=== PATIENT | female | born 1955 | race Caucasian/White ===

== ENCOUNTER → 2016-05-31 | Outpatient (CLI) | payer BC ==
[~2016-05-31] MED LIST: LISI-646 PO; METO25TA5 PO
[2016-05-31 14:26] LABS: BUN/Creatinine Ratio 15.8; Calcium 8.9 mg/dL (8.5-10.1); Potassium 3.9 mmol/L (3.5-5.1)
== END | disposition home or self-care (01) ==
LOC: LAB 13:49
PROVIDERS: ATTEND Internal Medicine
DX: I10 Essential (primary) hypertension (principal)
CPT/HCPCS: 36415; 80048

== ENCOUNTER → 2016-07-28 | Outpatient (CLI) | payer BC ==
[2016-07-28 11:40] LABS: Potassium 3.9 mmol/L (3.5-5.1)
[2016-07-28 11:41] LABS: Albumin 3.9 g/dL (3.4-5.0); BUN/Creatinine Ratio 21.3; Bilirubin, Total 0.3 mg/dL (0.2-1.0); Calcium 9.1 mg/dL (8.5-10.1)
== END | disposition home or self-care (01) ==
LOC: LAB 11:19
PROVIDERS: ATTEND Internal Medicine
DX: R73.09 Other abnormal glucose (principal); I10 Essential (primary) hypertension
CPT/HCPCS: 36415; 80053; 83036

== ENCOUNTER → 2016-10-15 | Outpatient (CLI) | payer BC ==
[2016-10-15 09:38] LABS: Albumin 3.5 g/dL (3.4-5.0); Bilirubin, Total 0.5 mg/dL (0.2-1.0); Calcium 8.6 mg/dL (8.5-10.1); Total Protein 6.3 g/dL (6.4-8.2)
== END | disposition home or self-care (01) ==
LOC: LAB 09:02
PROVIDERS: ATTEND Internal Medicine
DX: I10 Essential (primary) hypertension (principal)
CPT/HCPCS: 36415; 80053

== ENCOUNTER → 2017-03-11 | Outpatient (CLI) | payer BC ==
[2017-03-11 08:30] LABS: Cholesterol 236 mg/dL (< 200); HDL Cholesterol 54 mg/dL (40-59); LDL Cholesterol 163 mg/dL (< 100); Triglycerides 155 mg/dL (< 150)
== END | disposition home or self-care (01) ==
LOC: LAB 07:24
PROVIDERS: ATTEND Internal Medicine
DX: I10 Essential (primary) hypertension (principal); Z79.899 Other long term (current) drug therapy
CPT/HCPCS: 36415; 80061; 83036

== ENCOUNTER → 2018-05-29 | Outpatient (CLI) | payer BC ==
[2018-05-29 10:10] LABS: Basophils # (auto) 0.1 uL; Basophils % (auto) 1.2 % (0.0-2.0); Eosinophils # (auto) 0.2 uL; Eosinophils % (auto) 2.5 % (0.0-7.0); Hematocrit 45.4 % (36.0-46.0); Hemoglobin 15.3 g/dL (12.2-16.2); Lymphocytes # (auto) 1.9 uL; Lymphocytes % (auto) 27.3 % (10.0-50.0); Mean Corpuscular Hemoglobin 30.9 pg (28.0-32.0); Mean Corpuscular Hgb Conc. 33.7 g/dL (32.0-36.0); Mean Corpuscular Volume 91.9 fL (80.0-100.0); Monocytes # (auto) 0.5 uL; Monocytes % (auto) 7.2 % (0.0-12.0); Neutrophils # (auto) 4.4 uL; Neutrophils % (auto) 61.8 % (37.0-80.0); Platelet Count (auto) 222 10^3/uL (140-450); Red Blood Cells 4.94 10^6/uL (4.0-5.20); Red Cell Distribution Width 13.1 % (11.8-14.3); White Blood Cell 7.1 10^3/uL (4.4-10.8)
[2018-05-29 10:59] LABS: Potassium 4.4 mmol/L (3.5-5.1)
[2018-05-29 11:08] LABS: Albumin 3.6 g/dL (3.4-5.0); BUN/Creatinine Ratio 17.7; Bilirubin, Total 0.5 mg/dL (0.2-1.0); Calcium 8.9 mg/dL (8.5-10.1)
== END | disposition home or self-care (01) ==
LOC: LAB 09:33
PROVIDERS: ATTEND Internal Medicine
DX: E78.5 Hyperlipidemia, unspecified (principal)
CPT/HCPCS: 36415; 80053; 80061; 84443; 85025

== ENCOUNTER → 2018-06-01 | Outpatient (CLI) | payer BC | END | disposition home or self-care (01) | LOC: LAB 12:06 | PROVIDERS: ATTEND Internal Medicine | DX: E78.5 Hyperlipidemia, unspecified (principal) | CPT/HCPCS: 82270 ==

== ENCOUNTER → 2019-07-19 | Outpatient (CLI) | payer BC ==
[2019-07-19 09:37] LABS: Basophils # (auto) 0 10 ^3/uL (0-0.2); Basophils % (auto) 0.8 % (0.0-2.0); Eosinophils # (auto) 0.2 10 ^3/uL (0-0.8); Eosinophils % (auto) 3.6 % (0.0-7.0); Hematocrit 38.9 % (36.0-46.0); Hemoglobin 13.3 g/dL (12.2-16.2); Lymphocytes # (auto) 1.9 10 ^3/uL (0.4-5.4); Lymphocytes % (auto) 33.8 % (10.0-50.0); Mean Corpuscular Hemoglobin 31.7 pg (28.0-32.0); Mean Corpuscular Hgb Conc. 34.1 g/dL (32.0-36.0); Mean Corpuscular Volume 92.8 fL (80.0-100.0); Monocytes # (auto) 0.6 10 ^3/uL (0-1.3); Monocytes % (auto) 10.1 % (0.0-12.0); Neutrophils % (auto) 51.7 % (37.0-80.0); Platelet Count (auto) 176 10^3/uL (140-450); Red Blood Cells 4.19 10^6/uL (4.0-5.20); Red Cell Distribution Width 13.3 % (11.8-14.3); White Blood Cell 5.8 10^3/uL (4.4-10.8)
[2019-07-19 10:23] LABS: Potassium 3.9 mmol/L (3.5-5.1)
[2019-07-19 10:30] LABS: Albumin 3.2 g/dL (3.4-5.0); BUN/Creatinine Ratio 31.6; Bilirubin, Total 0.4 mg/dL (0.2-1.0); Calcium 8.9 mg/dL (8.5-10.1); Total Protein 6.3 g/dL (6.4-8.2)
== END | disposition home or self-care (01) ==
LOC: LAB 09:01
PROVIDERS: ATTEND Internal Medicine
DX: E78.5 Hyperlipidemia, unspecified (principal); E55.9 Vitamin D deficiency, unspecified; I10 Essential (primary) hypertension
CPT/HCPCS: 36415; 80053; 80061; 82306; 84443; 85025

== ENCOUNTER → 2019-07-26 | Outpatient (CLI) | payer BC | END | disposition home or self-care (01) | LOC: LAB 08:34 | PROVIDERS: ATTEND Internal Medicine | DX: E78.5 Hyperlipidemia, unspecified (principal); I10 Essential (primary) hypertension | CPT/HCPCS: 82270 ==

== ENCOUNTER → 2020-03-20 | Outpatient (CLI) | payer BC ==
[2020-03-20 10:55] LABS: Albumin 3.5 g/dL (3.4-5.0); Calcium 9.7 mg/dL (8.5-10.1); Potassium 4.1 mmol/L (3.5-5.1)
[2020-03-20 10:59] LABS: Bilirubin, Total 0.4 mg/dL (0.2-1.0); Total Protein 6.6 g/dL (6.4-8.2)
== END | disposition home or self-care (01) ==
LOC: LAB 09:49
PROVIDERS: ATTEND Internal Medicine
DX: I10 Essential (primary) hypertension (principal); E78.5 Hyperlipidemia, unspecified; R73.09 Other abnormal glucose
CPT/HCPCS: 36415; 80053; 83036

== ENCOUNTER → 2020-03-26 | Outpatient (CLI) | payer OTHER | END | disposition home or self-care (01) | LOC: LAB 13:29 | PROVIDERS: ATTEND Internal Medicine | DX: U07.1 COVID-19 (principal) | CPT/HCPCS: 36415; 87426; C9803; U0003 ==

== ENCOUNTER → 2020-10-16 | Outpatient (CLI) | payer BC ==
[~2020-10-16] MED LIST changes: -LISI-646 PO; +LISI20TA28 PO
[2020-10-16 08:39] LABS: Basophils # (auto) 0.1 10 ^3/uL (0-0.2); Eosinophils # (auto) 0.1 10 ^3/uL (0-0.8); Hematocrit 39.9 % (36.0-46.0); Hemoglobin 13.5 g/dL (12.2-16.2); Lymphocytes # (auto) 1.6 10 ^3/uL (0.4-5.4); Lymphocytes % (auto) 28.3 % (10.0-50.0); Mean Corpuscular Hemoglobin 30.9 pg (28.0-32.0); Mean Corpuscular Hgb Conc. 33.9 g/dL (32.0-36.0); Mean Corpuscular Volume 91.1 fL (80.0-100.0); Monocytes # (auto) 0.5 10 ^3/uL (0-1.3); Monocytes % (auto) 9.2 % (0.0-12.0); Neutrophils # (auto) 3.4 10 ^3/uL (1.6-8.6); Neutrophils % (auto) 59.5 % (37.0-80.0); Platelet Count (auto) 213 10^3/uL (140-450); Red Blood Cells 4.38 10^6/uL (4.0-5.20); Red Cell Distribution Width 13.4 % (11.8-14.3); White Blood Cell 5.8 10^3/uL (4.4-10.8)
[2020-10-16 09:02] LABS: Albumin 3.5 g/dL (3.4-5.0); Calcium 9.1 mg/dL (8.5-10.1); Potassium 4.2 mmol/L (3.5-5.1)
[2020-10-16 09:07] LABS: BUN/Creatinine Ratio 32.7; Bilirubin, Total 0.6 mg/dL (0.2-1.0); Total Protein 6.6 g/dL (6.4-8.2)
== END | disposition home or self-care (01) ==
LOC: LAB 08:17
PROVIDERS: ATTEND Internal Medicine
DX: I10 Essential (primary) hypertension (principal); E78.5 Hyperlipidemia, unspecified; E55.9 Vitamin D deficiency, unspecified
CPT/HCPCS: 36415; 80053; 80061; 82306; 83036; 84443; 85025

== ENCOUNTER 2021-02-19 09:12 | Day surgery (SDC) | payer BC ==
[2021-02-17 12:07] LABS: Basophils # (auto) 0.1 10 ^3/uL (0-0.2); Basophils % (auto) 0.8 % (0.0-2.0); Eosinophils # (auto) 0.2 10 ^3/uL (0-0.8); Eosinophils % (auto) 2.6 % (0.0-7.0); Hematocrit 39.2 % (36.0-46.0); Hemoglobin 13.3 g/dL (12.2-16.2); Lymphocytes # (auto) 2.3 10 ^3/uL (0.4-5.4); Mean Corpuscular Hemoglobin 31.3 pg (28.0-32.0); Monocytes # (auto) 0.7 10 ^3/uL (0-1.3); Monocytes % (auto) 8.5 % (0.0-12.0); Neutrophils # (auto) 5.1 10 ^3/uL (1.6-8.6); Neutrophils % (auto) 61.1 % (37.0-80.0); Red Blood Cells 4.26 10^6/uL (4.0-5.20); White Blood Cell 8.4 10^3/uL (4.4-10.8)
[2021-02-17 12:40] LABS: INR 1.01 (0.9-1.15); Partial Thromboplastin Time 23.8 sec (23.6-33.0)
[2021-02-17 12:43] LABS: Albumin 3.4 g/dL (3.4-5.0); Calcium 9.1 mg/dL (8.5-10.1); Potassium 3.7 mmol/L (3.5-5.1)
[2021-02-17 12:48] LABS: BUN/Creatinine Ratio 35.3; Bilirubin, Total 0.6 mg/dL (0.2-1.0); Total Protein 6.8 g/dL (6.4-8.2)
[~2021-02-19] VITALS: Ht 188 cm; Wt 77.1 kg
[~2021-02-19 09:12] MED LIST changes: +ASCO500T11 PO; +ASPI1TAB20 PO; +B-COTAB59 OR; +CALC667C5 PO; +CHOL1TAB7 PO; +CRAN125T PO; -LISI20TA28 PO; +LOSA-39 PO; +MAGN400T40 OR; -METO25TA5 PO; +OMEG100062 PO; +TRIA50CA43 PO; +TURMPOW XX; +ZINC30CA PO
[2021-02-19] MEDS ORDERED: SODIUM CHLORIDE LOCK 10 ML ONE (09:17)
[2021-02-19] MEDS ORDERED: diphenhdrAMINE HCL 50 MG/1 ML VL ONE ×2 (09:17→10:09)
[2021-02-19] MEDS: MIDAZOLAM HCL 5 MG/ML-1ML VIAL ONE ×2 (10:04→10:07)
[2021-02-19] MEDS: fentaNYL CITRATE 100 MCG/2 ML VL ONE ×2 (10:04→10:07)
[2021-02-19] MEDS ORDERED: MIDAZOLAM HCL 5 MG/ML-1ML VIAL ONE (10:09)
[2021-02-19] MEDS ORDERED: fentaNYL CITRATE 100 MCG/2 ML VL ONE (10:10)
[2021-02-19 11:15] VITALS: BP 138/71
== END 2021-02-19 11:15 | disposition home or self-care (01) ==
LOC: GI 09:12
PROVIDERS: ATTEND Internal Medicine Gastroenterology
DX: R19.7 Diarrhea, unspecified (principal); Z86.010 Personal history of colon polyps; Z88.0 Allergy status to penicillin; Z90.10 Acquired absence of unspecified breast and nipple; Z98.51 Tubal ligation status; Z79.82 Long term (current) use of aspirin; Z79.899 Other long term (current) drug therapy; Z90.710 Acquired absence of both cervix and uterus; Z87.891 Personal history of nicotine dependence; Z98.890 Other specified postprocedural states; Z20.822 Contact with and (suspected) exposure to COVID-19
CPT/HCPCS: 36415; 45378; 80053; 85025; 85610; 85730; J1200; J2250; J3010; J7030; U0003; 99152

== ENCOUNTER → 2021-11-26 | Outpatient (CLI) | payer BC, MEDICARE ==
[~2021-11-26] MED LIST changes: +CLON0.2T PO; +LACTCAP35 OR; +TRIATAB3 OR
== END | disposition home or self-care (01) ==
LOC: XYW 07:45
PROVIDERS: ATTEND Internal Medicine
DX: R06.02 Shortness of breath (principal)
CPT/HCPCS: 93306

== ENCOUNTER 2021-11-30 06:05 | Inpatient (IN) | payer BC, MEDICARE ==
[2021-11-26 10:59] LABS: Basophils # (auto) 0.1 10 ^3/uL (0-0.2); Eosinophils # (auto) 0.2 10 ^3/uL (0-0.8); Eosinophils % (auto) 2.6 % (0.0-7.0); Hematocrit 39.1 % (36.0-46.0); Hemoglobin 12.9 g/dL (12.2-16.2); Lymphocytes # (auto) 2.4 10 ^3/uL (0.4-5.4); Lymphocytes % (auto) 30.3 % (10.0-50.0); Mean Corpuscular Hemoglobin 29.8 pg (28.0-32.0); Mean Corpuscular Hgb Conc. 33.1 g/dL (32.0-36.0); Monocytes # (auto) 0.5 10 ^3/uL (0-1.3); Monocytes % (auto) 6.2 % (0.0-12.0); Neutrophils # (auto) 4.7 10 ^3/uL (1.6-8.6); Neutrophils % (auto) 59.9 % (37.0-80.0); Nucleated Red Blood Cells % 0.1 %; Red Blood Cells 4.34 10^6/uL (4.0-5.20); Red Cell Distribution Width 12.5 % (11.8-14.3); White Blood Cell 7.8 10^3/uL (4.4-10.8)
[2021-11-26 11:05] LABS: Urine Bacteria FEW /hpf (None Seen); Urine Blood Negative /uL (Negative); Urine Specific Gravity 1.016 (1.001-1.035); Urine WBC 27 /hpf (0 - 5)
[2021-11-26 11:14] LABS: INR 0.93 (0.9-1.15); Partial Thromboplastin Time 26.7 sec (24.6-33.4)
[2021-11-26 11:20] LABS: Albumin 3.5 g/dL (3.4-5.0); Calcium 9.6 mg/dL (8.5-10.1); Potassium 4.1 mmol/L (3.5-5.1)
[2021-11-26 11:24] LABS: BUN/Creatinine Ratio 35.8; Bilirubin, Total 0.3 mg/dL (0.2-1.0)
[~2021-11-30] VITALS: Ht 182.9 cm; Wt 92.8 kg
[2021-11-30] VITALS (18 sets, daily range): BP systolic 84–150; BP diastolic 46–83
[~2021-11-30 06:05] MED LIST changes: -TRIA50CA43 PO
[2021-11-30] MEDS ORDERED: CELECOXIB 100 MG CAP ONE (06:43)
[2021-11-30] MEDS ORDERED: PREGABALIN CAPSULE 75 MG CAP ONE (06:43)
[2021-11-30] MEDS ORDERED: ACETAMINOPHEN IV 100 ML IV ONE (06:43)
[2021-11-30] MEDS: VANCOMYCIN HCL 1000 MG VL ONE ×2 (06:43→07:03)
[2021-11-30] MEDS ORDERED: PREGABALIN CAPSULE 75 MG CAP PO ONE (06:45)
[2021-11-30] MEDS ORDERED: CELECOXIB 100 MG CAP PO ONE (06:45)
[2021-11-30] MEDS ORDERED: ACETAMINOPHEN IV 1000 MG/100ML (10MG/ML) IV ONE (06:45)
[2021-11-30] MEDS ORDERED: TRANEXAMIC ACID 20 ML ONE (06:53)
[2021-11-30] MEDS ORDERED: BUPIVACAINE 0.25% INJ 50ML VIAL ONE (06:54)
[2021-11-30] MEDS ORDERED: EPINEPHrine HCL 1 MG/1 ML AMP ONE (06:56)
[2021-11-30] MEDS ORDERED: KETOROLAC TROMETH 60MG/2ML VIAL ONE ×2 (06:58)
[2021-11-30] MEDS ORDERED: MORPHINE SULF PF 5 MG/10 ML VIAL ONE (07:02)
[2021-11-30] MEDS ORDERED: TETRACAINE 1% INJ 2 ML VIAL IJ ONE (07:14)
[2021-11-30] MEDS ORDERED: DexAMETHasone SOD PHOS 10MG/1ML VIAL INJ ONE (07:19)
[2021-11-30] MEDS ORDERED: MIDAZOLAM HCL 2MG/2ML 2ml VIAL (1mg/ml) ONE (07:19)
[2021-11-30] MEDS ORDERED: fentaNYL CITRATE 100 MCG/2 ML VL ONE (07:19)
[2021-11-30] MEDS ORDERED: PROPOFOL 10 MG/ML 20 ML IV ONE (07:23)
[2021-11-30] MEDS ORDERED: ePHEDrine SULFATE 50 MG/ML AMP IV PRN (08:00)
[2021-11-30] MEDS ORDERED: MIDAZOLAM HCL 2MG/2ML 2ml VIAL (1mg/ml) IV PRN (08:00)
[2021-11-30] MEDS ORDERED: hydrALAZINE HCL 20 MG/ML VL IV PRN (08:00)
[2021-11-30] MEDS ORDERED: BUPIVACAINE 0.25% INJ 50ML VIAL IJ ONE (08:00)
[2021-11-30] MEDS ORDERED: NALOXONE HCL 0.4 MG/ML VIAL IV PRN (08:00)
[2021-11-30] MEDS ORDERED: LABETALOL HCL 5 MG/ML 4ML SYRINGE IV PRN (08:00)
[2021-11-30] MEDS ORDERED: DexAMETHasone SOD PHOS 10MG/1ML VIAL INJ IV PRN (08:00)
[2021-11-30] MEDS ORDERED: ONDANSETRON HCL 4 MG/2 ML VIAL IV PRN ×2 (08:00)
[2021-11-30] MEDS ORDERED: diphenhdrAMINE HCL 50 MG/1 ML VL IV PRN (08:00)
[2021-11-30] MEDS ORDERED: HYDROmorphone HCL 2 MG/ML VL/or syr IV PRN ×2 (08:00→08:45)
[2021-11-30] MEDS ORDERED: NALBUPHINE HCL 10 MG/1ml INJECTION SUBCUT ONE (08:00)
[2021-11-30] MEDS ORDERED: NITROGLYCERIN 0.4 MG SL TAB SL PRN (08:45)
[2021-11-30] MEDS ORDERED: MORPHINE SULFATE INJ 2 MG/ml SYRG IV PRN (08:45)
[2021-11-30] MEDS ORDERED: BISACODYL 5 MG EC TAB PO PRN (08:45)
[2021-11-30] MEDS ORDERED: ACETAMINOPHEN 325 MG TAB PO PRN (08:45)
[2021-11-30] MEDS: LACTATED RINGER'S 1,000 ML IV SCH ×2 (09:35→17:38)
[2021-11-30] MEDS ORDERED: VANCOMYCIN 1GM/250ML 250 ML IV SCH ×3 (10:00→15:00)
[2021-11-30] MEDS ORDERED: ASCORBIC ACID 500 MG TAB PO SCH (10:00)
[2021-11-30] MEDS ORDERED: LOSARTAN POTASSIUM 50 MG TAB PO SCH (10:00)
[2021-11-30] MEDS: ENOXAPARIN SOD 40 MG/0.4 ML SYRINGE SC SCH ×2 (10:00→11:16)
[2021-11-30] MEDS: oxyCODONE ER 10 MG TAB PO SCH ×2 (10:00→22:00)
[2021-11-30] MEDS ORDERED: ONDANSETRON HCL 4 MG/2 ML VIAL IV ONE (10:31)
[2021-11-30] MEDS: MAGNESIUM OXIDE 400 MG TAB PO SCH (11:16)
[2021-11-30] MEDS: DOCUSATE SOD 100 MG CAP PO SCH ×2 (11:16→21:40)
[2021-11-30] MEDS: PANTOPRAZOLE 40 MG TAB PO SCH (11:17)
[2021-11-30] MEDS ORDERED: CALC-355 OR (14:01)
[2021-11-30] MEDS ORDERED: cefTRIAXone 1GM/50ML D5W 50 ML IV ONE (14:15)
[2021-11-30] MEDS: SODIUM CHLOR 0.9% PF (SALINE LOCK) 10ML VIAL/SYR IV SCH ×2 (14:42→23:26)
[2021-11-30] MEDS: CHOLECALCIFEROL (VITD3) 1,000UNIT=25mCg TAB PO SCH (15:20)
[2021-11-30] MEDS: OXYCODONE W/ ACETAMINOPHEN 5/325MG TABLET PO PRN (17:38)
[2021-11-30] MEDS: cloNIDine HCL 0.1 MG TAB PO SCH (17:38)
[2021-11-30] MEDS: VANCOMYCIN 1GM/250ML 250 ML IV SCH (18:58)
[2021-12-01] VITALS (16 sets, daily range): BP systolic 105–144; BP diastolic 53–140
[2021-12-01] MEDS: OXYCODONE W/ ACETAMINOPHEN 5/325MG TABLET PO PRN ×4 (04:04→17:28)
[2021-12-01] MEDS: LACTATED RINGER'S 1,000 ML IV SCH ×3 (04:04→21:33)
[2021-12-01 05:13] LABS: Basophils # (auto) 0 10 ^3/uL (0-0.2); Basophils % (auto) 0.3 % (0.0-2.0); Eosinophils # (auto) 0 10 ^3/uL (0-0.8); Eosinophils % (auto) 0.2 % (0.0-7.0); Hematocrit 34.2 % (36.0-46.0); Hemoglobin 11.6 g/dL (12.2-16.2); Lymphocytes # (auto) 1.3 10 ^3/uL (0.4-5.4); Lymphocytes % (auto) 9.4 % (10.0-50.0); Mean Corpuscular Hemoglobin 30.7 pg (28.0-32.0); Mean Corpuscular Volume 90.3 fL (80.0-100.0); Monocytes # (auto) 1.1 10 ^3/uL (0-1.3); Monocytes % (auto) 8.4 % (0.0-12.0); Neutrophils # (auto) 11.2 10 ^3/uL (1.6-8.6); Neutrophils % (auto) 81.7 % (37.0-80.0); Red Blood Cells 3.79 10^6/uL (4.0-5.20); Red Cell Distribution Width 12.6 % (11.8-14.3); White Blood Cell 13.7 10^3/uL (4.4-10.8)
[2021-12-01 05:32] LABS: Potassium 4.1 mmol/L (3.5-5.1)
[2021-12-01 05:40] LABS: Albumin 2.9 g/dL (3.4-5.0); BUN/Creatinine Ratio 30.6; Bilirubin, Total 0.3 mg/dL (0.2-1.0); Calcium 8.6 mg/dL (8.5-10.1); Total Protein 6.3 g/dL (6.4-8.2)
[2021-12-01] MEDS: VANCOMYCIN 1GM/250ML 250 ML IV SCH (06:21)
[2021-12-01] MEDS: SODIUM CHLOR 0.9% PF (SALINE LOCK) 10ML VIAL/SYR IV SCH ×3 (06:21→21:32)
[2021-12-01] MEDS: cefTRIAXone 1GM/50ML D5W 50 ML IV SCH (09:00)
[2021-12-01] MEDS: oxyCODONE ER 10 MG TAB PO SCH ×2 (09:58→21:33)
[2021-12-01] MEDS: MAGNESIUM OXIDE 400 MG TAB PO SCH (09:58)
[2021-12-01] MEDS: DOCUSATE SOD 100 MG CAP PO SCH ×2 (10:00→21:32)
[2021-12-01] MEDS: PANTOPRAZOLE 40 MG TAB PO SCH (10:00)
[2021-12-01] MEDS: CHOLECALCIFEROL (VITD3) 1,000UNIT=25mCg TAB PO SCH (10:11)
[2021-12-01] MEDS: LOSARTAN POTASSIUM 50 MG TAB PO SCH (10:11)
[2021-12-01] MEDS: HYDROmorphone HCL 2 MG/ML VL/or syr IV PRN ×2 (15:03→20:02)
[2021-12-01] MEDS: cloNIDine HCL 0.1 MG TAB PO SCH ×2 (17:28→18:37)
[2021-12-01] MEDS: ONDANSETRON HCL 4 MG/2 ML VIAL IV PRN (18:37)
[2021-12-01] MEDS: LACTULOSE 20Gm/30ML SOLN PO PRN (21:32)
[2021-12-02] MEDS: HYDROmorphone HCL 2 MG/ML VL/or syr IV PRN ×6 (01:15→20:54)
[2021-12-02] MEDS: ONDANSETRON HCL 4 MG/2 ML VIAL IV PRN ×3 (01:15→16:19)
[2021-12-02 05:00] VITALS: BP 118/52
[2021-12-02] MEDS: SODIUM CHLOR 0.9% PF (SALINE LOCK) 10ML VIAL/SYR IV SCH ×3 (05:49→22:10)
[2021-12-02 06:23] LABS: Hematocrit 31.1 % (36.0-46.0); Hemoglobin 10.4 g/dL (12.2-16.2)
[2021-12-02 06:36] LABS: BUN/Creatinine Ratio 29.5; Calcium 8.3 mg/dL (8.5-10.1); Potassium 3.9 mmol/L (3.5-5.1)
[2021-12-02] MEDS: OXYCODONE W/ ACETAMINOPHEN 5/325MG TABLET PO PRN ×3 (08:15→18:40)
[2021-12-02 09:00] VITALS: BP 133/71
[2021-12-02] MEDS: PANTOPRAZOLE 40 MG TAB PO SCH (09:54)
[2021-12-02] MEDS: oxyCODONE ER 10 MG TAB PO SCH ×2 (09:54→22:15)
[2021-12-02] MEDS: LOSARTAN POTASSIUM 50 MG TAB PO SCH (09:54)
[2021-12-02] MEDS: MAGNESIUM OXIDE 400 MG TAB PO SCH (09:54)
[2021-12-02] MEDS: DOCUSATE SOD 100 MG CAP PO SCH ×2 (09:54→22:11)
[2021-12-02] MEDS: ENOXAPARIN SOD 40 MG/0.4 ML SYRINGE SC SCH (09:54)
[2021-12-02] MEDS: cefTRIAXone 1GM/50ML D5W 50 ML IV SCH (09:56)
[2021-12-02] MEDS: CHOLECALCIFEROL (VITD3) 1,000UNIT=25mCg TAB PO SCH (10:25)
[2021-12-02 13:00] VITALS: BP 159/68
[2021-12-02 17:00] VITALS: BP 148/70
[2021-12-02 20:00] VITALS: BP 158/74
[2021-12-02 22:00] VITALS: BP 158/74
[2021-12-03] MEDS: OXYCODONE W/ ACETAMINOPHEN 5/325MG TABLET PO PRN ×3 (02:24→19:31)
[2021-12-03] MEDS: ONDANSETRON HCL 4 MG/2 ML VIAL IV PRN ×2 (04:59→16:19)
[2021-12-03 05:00] VITALS: BP 154/67
[2021-12-03] MEDS: HYDROmorphone HCL 2 MG/ML VL/or syr IV PRN ×3 (05:00→16:19)
[2021-12-03] MEDS: SODIUM CHLOR 0.9% PF (SALINE LOCK) 10ML VIAL/SYR IV SCH ×3 (05:36→22:02)
[2021-12-03 06:42] LABS: Hematocrit 33.7 % (36.0-46.0); Hemoglobin 11.1 g/dL (12.2-16.2)
[2021-12-03 09:00] VITALS: BP 159/77
[2021-12-03] MEDS: CHOLECALCIFEROL (VITD3) 1,000UNIT=25mCg TAB PO SCH (10:00)
[2021-12-03] MEDS ORDERED: LOSARTAN POTASSIUM 50 MG TAB PO SCH (10:15)
[2021-12-03] MEDS: oxyCODONE ER 10 MG TAB PO SCH ×2 (10:18→22:03)
[2021-12-03] MEDS: DOCUSATE SOD 100 MG CAP PO SCH ×2 (10:19→22:03)
[2021-12-03] MEDS: ENOXAPARIN SOD 40 MG/0.4 ML SYRINGE SC SCH (10:19)
[2021-12-03] MEDS: MAGNESIUM OXIDE 400 MG TAB PO SCH (10:19)
[2021-12-03] MEDS: cefTRIAXone 1GM/50ML D5W 50 ML IV SCH (10:19)
[2021-12-03] MEDS ORDERED: LOSARTAN POTASSIUM 50 MG TAB PO ONE (10:30)
[2021-12-03 13:00] VITALS: BP 137/70
[2021-12-03 17:00] VITALS: BP 158/78
[2021-12-03] MEDS: cloNIDine HCL 0.1 MG TAB PO SCH (18:00)
[2021-12-03] MEDS: LACTULOSE 20Gm/30ML SOLN PO PRN (19:31)
[2021-12-03 22:14] VITALS: BP 97/48
[2021-12-04] MEDS: ONDANSETRON HCL 4 MG/2 ML VIAL IV PRN ×2 (03:08→08:31)
[2021-12-04] MEDS: HYDROmorphone HCL 2 MG/ML VL/or syr IV PRN ×2 (03:08→08:31)
[2021-12-04] MEDS: SODIUM CHLOR 0.9% PF (SALINE LOCK) 10ML VIAL/SYR IV SCH (05:34)
[2021-12-04 05:54] VITALS: BP 139/65
[2021-12-04 08:33] VITALS: BP 155/60
[2021-12-04] MEDS: cefTRIAXone 1GM/50ML D5W 50 ML IV SCH (08:53)
[2021-12-04] MEDS: oxyCODONE ER 10 MG TAB PO SCH (08:53)
[2021-12-04] MEDS: MAGNESIUM OXIDE 400 MG TAB PO SCH (08:53)
[2021-12-04] MEDS: ENOXAPARIN SOD 40 MG/0.4 ML SYRINGE SC SCH (08:53)
[2021-12-04] MEDS: DOCUSATE SOD 100 MG CAP PO SCH (08:54)
[2021-12-04] MEDS: CHOLECALCIFEROL (VITD3) 1,000UNIT=25mCg TAB PO SCH (08:54)
[2021-12-04] MEDS ORDERED: LOSARTAN POTASSIUM 50 MG TAB PO SCH (10:00)
[2021-12-04 10:34] VITALS: BP 135/63
[2021-12-04] MEDS: OXYCODONE W/ ACETAMINOPHEN 5/325MG TABLET PO PRN (11:52)
== END 2021-12-04 12:43 | disposition home health service (06) | DRG 470 ==
LOC: SUR 06:05 → TELE 08:42 → TELE-CENTR 10:28 → CENTRAL 12-01 12:27
PROVIDERS: ADMIT Orthopaedic Surgery Adult Reconstructive Orthopaedic Surgery; ATTEND Internal Medicine
PROC: 8E0YXBZ Computer Assisted Procedure of Lower Extremity (ICD-10-PCS; 2021-11-30)
PROC: 0SRC0J9 Replacement of Right Knee Joint with Synthetic Substitute, Cemented, Open Approach (ICD-10-PCS; principal; 2021-11-30 07:29)
DX: M17.11 Unilateral primary osteoarthritis, right knee (principal); N39.0 Urinary tract infection, site not specified; I10 Essential (primary) hypertension; M21.00 Valgus deformity, not elsewhere classified, unspecified site; Z88.0 Allergy status to penicillin; Z20.822 Contact with and (suspected) exposure to COVID-19
CPT/HCPCS: 36415; 73562; 80048; 80053; 81001; 85014; 85018; 85025; 85610; 85730; 86850; 86900; 86901; 97110; 97116; 97163; 97530; G0378; J0131; J0171; J0696; J1100; J1885; J2250; J2405; J2704; J3490

== ENCOUNTER 2022-06-14 10:01 | Inpatient (IN) | payer BC, MEDICARE ==
[~2022-06-14] VITALS: Ht 182.9 cm; Wt 83.6 kg
[~2022-06-14 10:01] MED LIST changes: -ASPI1TAB20 PO; -B-COTAB59 OR; +CALC-355 OR
[2022-06-14 10:53] LABS: Basophils # (auto) 0.1 10 ^3/uL (0-0.2); Basophils % (auto) 0.6 % (0.0-2.0); Eosinophils # (auto) 0.1 10 ^3/uL (0-0.8); Eosinophils % (auto) 1.2 % (0.0-7.0); Hematocrit 39.5 % (36.0-46.0); Hemoglobin 13.2 g/dL (12.2-16.2); Lymphocytes # (auto) 1.3 10 ^3/uL (0.4-5.4); Lymphocytes % (auto) 13.2 % (10.0-50.0); Mean Corpuscular Hemoglobin 30.4 pg (28.0-32.0); Mean Corpuscular Hgb Conc. 33.4 g/dL (32.0-36.0); Monocytes # (auto) 1.2 10 ^3/uL (0-1.3); Monocytes % (auto) 11.7 % (0.0-12.0); Neutrophils # (auto) 7.2 10 ^3/uL (1.6-8.6); Neutrophils % (auto) 73.3 % (37.0-80.0); Red Blood Cells 4.34 10^6/uL (4.0-5.20); Red Cell Distribution Width 13.4 % (11.8-14.3); White Blood Cell 9.9 10^3/uL (4.4-10.8)
[2022-06-14 11:02] LABS: Albumin 3.7 g/dL (3.4-5.0); BUN/Creatinine Ratio 26.6; Calcium 9.4 mg/dL (8.5-10.1)
[2022-06-14 11:04] LABS: INR 0.95 (0.9-1.15); Partial Thromboplastin Time 27.8 sec (24.6-33.4)
[2022-06-14 11:06] LABS: Bilirubin, Total 0.7 mg/dL (0.2-1.0); Total Protein 6.9 g/dL (6.4-8.2)
[2022-06-14] MEDS ORDERED: HYDROcodone-ACET 10/325MG TAB PO ONE (11:45)
[2022-06-14] MEDS ORDERED: LORazepam 0.5 MG TAB PO PRN (12:45)
[2022-06-14] MEDS ORDERED: TEMAZEPAM 15 MG CAP PO PRN (12:45)
[2022-06-14] MEDS ORDERED: ACETAMINOPHEN 325 MG TAB PO PRN (12:45)
[2022-06-14] MEDS ORDERED: DOCUSATE SOD 100 MG CAP PO PRN (12:45)
[2022-06-14] MEDS: SODIUM CHLORIDE 0.9% 1,000 ML IV SCH (13:06)
[2022-06-14 14:52] LABS: Urine Bacteria FEW /hpf (None Seen); Urine Blood Negative /uL (Negative); Urine Specific Gravity 1.008 (1.001-1.035); Urine WBC 7 /hpf (0 - 5)
[2022-06-14 15:00] VITALS: BP 130/61
[2022-06-14] MEDS: cefTRIAXone 1GM/50ML D5W 50 ML IV SCH (15:00)
[2022-06-14] MEDS: HYDROcodone-ACET 5/325MG TAB PO PRN ×2 (15:00→20:28)
[2022-06-14] MEDS ORDERED: LIDOCAINE 2%HCL (LOCAL ANESTH.) INJ 10ml MDV ONE (15:19)
[2022-06-14] MEDS ORDERED: IOHEXOL 300 MG/ML 100ML BOTTLE IJ ONE (15:20)
[2022-06-14 16:40] VITALS: BP 104/77
[2022-06-14 20:00] VITALS: BP 131/63
[2022-06-14 22:00] VITALS: BP 131/63
[2022-06-15] MEDS: MORPHINE SULFATE INJ 2 MG/ml SYRG IV PRN ×2 (00:18→05:40)
[2022-06-15] MEDS: HYDROcodone-ACET 5/325MG TAB PO PRN (04:08)
[2022-06-15 05:00] VITALS: BP 148/73
[2022-06-15] MEDS: SODIUM CHLORIDE 0.9% 1,000 ML IV SCH ×2 (05:41→06:42)
[2022-06-15 06:26] LABS: BUN/Creatinine Ratio 29.2; Calcium 8.8 mg/dL (8.5-10.1); Potassium 4.1 mmol/L (3.5-5.1)
[2022-06-15 06:27] LABS: Basophils # (auto) 0 10 ^3/uL (0-0.2); Basophils % (auto) 0.6 % (0.0-2.0); Eosinophils # (auto) 0.1 10 ^3/uL (0-0.8); Eosinophils % (auto) 1.6 % (0.0-7.0); Hematocrit 34.9 % (36.0-46.0); Hemoglobin 11.5 g/dL (12.2-16.2); Lymphocytes # (auto) 2.3 10 ^3/uL (0.4-5.4); Lymphocytes % (auto) 27.2 % (10.0-50.0); Mean Corpuscular Hemoglobin 29.8 pg (28.0-32.0); Mean Corpuscular Hgb Conc. 32.8 g/dL (32.0-36.0); Mean Corpuscular Volume 90.8 fL (80.0-100.0); Monocytes # (auto) 1.1 10 ^3/uL (0-1.3); Monocytes % (auto) 13.2 % (0.0-12.0); Neutrophils # (auto) 4.8 10 ^3/uL (1.6-8.6); Neutrophils % (auto) 57.4 % (37.0-80.0); Nucleated Red Blood Cells % 0.1 %; Red Blood Cells 3.85 10^6/uL (4.0-5.20); Red Cell Distribution Width 13.5 % (11.8-14.3); White Blood Cell 8.4 10^3/uL (4.4-10.8)
[2022-06-15 09:00] VITALS: BP 143/67
[2022-06-15] MEDS ORDERED: cloNIDine HCL 0.1 MG TAB PO PRN (09:45)
[2022-06-15] MEDS ORDERED: KETOROLAC TROMETH 30 MG/ML 1ML VIAL IV ONE (10:00)
[2022-06-15] MEDS ORDERED: PANTOPRAZOLE 40 MG TAB PO ONE (10:00)
[2022-06-15] MEDS ORDERED: TRIAMTERENE/HCTZ 75/50MG TABLET PO SCH (10:00)
[2022-06-15] MEDS: cefTRIAXone 1GM/50ML D5W 50 ML IV SCH (10:07)
[2022-06-15] MEDS: TRIAMTERENE/HCTZ 37.5/25 MG CAP/TAB PO SCH (10:07)
[2022-06-15] MEDS: LOSARTAN POTASSIUM 50 MG TAB PO SCH (10:08)
[2022-06-15] MEDS ORDERED: LACTULOSE 20Gm/30ML SOLN PO ONE (10:15)
[2022-06-15] MEDS: PANTOPRAZOLE 40 MG TAB PO SCH (11:13)
[2022-06-15] MEDS: NAPROXEN 500 MG TAB PO SCH ×2 (11:13→22:02)
[2022-06-15 13:00] VITALS: BP 145/76
[2022-06-15] MEDS: ONDANSETRON HCL 4 MG/2 ML VIAL IV PRN (13:30)
[2022-06-15 17:18] VITALS: BP 111/63
[2022-06-15 20:00] VITALS: BP 144/65
[2022-06-15 22:00] VITALS: BP 144/65
[2022-06-15] MEDS ORDERED: LACTULOSE 20Gm/30ML SOLN PO SCH (22:00)
[2022-06-16 05:29] VITALS: BP 124/67
[2022-06-16 05:55] LABS: Basophils # (auto) 0.1 10 ^3/uL (0-0.2); Basophils % (auto) 0.8 % (0.0-2.0); Eosinophils # (auto) 0.2 10 ^3/uL (0-0.8); Eosinophils % (auto) 2.2 % (0.0-7.0); Hematocrit 33.6 % (36.0-46.0); Hemoglobin 11.2 g/dL (12.2-16.2); Lymphocytes % (auto) 25.6 % (10.0-50.0); Mean Corpuscular Hemoglobin 30.1 pg (28.0-32.0); Mean Corpuscular Hgb Conc. 33.4 g/dL (32.0-36.0); Mean Corpuscular Volume 90.2 fL (80.0-100.0); Monocytes # (auto) 0.8 10 ^3/uL (0-1.3); Monocytes % (auto) 10.5 % (0.0-12.0); Neutrophils # (auto) 4.9 10 ^3/uL (1.6-8.6); Neutrophils % (auto) 60.9 % (37.0-80.0); Red Blood Cells 3.73 10^6/uL (4.0-5.20); Red Cell Distribution Width 13.3 % (11.8-14.3)
[2022-06-16 06:16] LABS: Calcium 9.2 mg/dL (8.5-10.1); Potassium 4.3 mmol/L (3.5-5.1)
[2022-06-16 06:20] LABS: BUN/Creatinine Ratio 17.4
[2022-06-16 08:00] VITALS: BP 146/72
[2022-06-16] MEDS: LOSARTAN POTASSIUM 50 MG TAB PO SCH (09:28)
[2022-06-16] MEDS: cefTRIAXone 1GM/50ML D5W 50 ML IV SCH (09:28)
[2022-06-16] MEDS: NAPROXEN 500 MG TAB PO SCH ×3 (09:29→21:33)
[2022-06-16] MEDS: PANTOPRAZOLE 40 MG TAB PO SCH (09:29)
[2022-06-16] MEDS: TRIAMTERENE/HCTZ 37.5/25 MG CAP/TAB PO SCH (09:29)
[2022-06-16] MEDS ORDERED: VANCOMYCIN PER PHARMACY 0 MG IV SCH (09:45)
[2022-06-16] MEDS ORDERED: LACTULOSE 20Gm/30ML SOLN PO PRN (09:45)
[2022-06-16] MEDS ORDERED: VANCOMYCIN 1GM/250ML 250 ML IV ONE (10:00)
[2022-06-16 13:29] VITALS: BP 145/83
[2022-06-16 17:13] VITALS: BP 143/79
[2022-06-16 20:00] VITALS: BP 131/78
[2022-06-16 21:52] VITALS: BP 131/72
[2022-06-17] VITALS (13 sets, daily range): BP systolic 98–165; BP diastolic 42–79
[2022-06-17] MEDS: VANCOMYCIN 1GM/250ML 250 ML IV SCH ×2 (02:57→18:32)
[2022-06-17 06:15] LABS: Basophils # (auto) 0.1 10 ^3/uL (0-0.2); Basophils % (auto) 0.9 % (0.0-2.0); Eosinophils # (auto) 0.2 10 ^3/uL (0-0.8); Eosinophils % (auto) 3.5 % (0.0-7.0); Hemoglobin 11.4 g/dL (12.2-16.2); Lymphocytes # (auto) 1.8 10 ^3/uL (0.4-5.4); Lymphocytes % (auto) 27.1 % (10.0-50.0); Mean Corpuscular Hemoglobin 30.6 pg (28.0-32.0); Mean Corpuscular Hgb Conc. 34.5 g/dL (32.0-36.0); Mean Corpuscular Volume 88.9 fL (80.0-100.0); Monocytes # (auto) 0.7 10 ^3/uL (0-1.3); Monocytes % (auto) 10.2 % (0.0-12.0); Neutrophils # (auto) 3.8 10 ^3/uL (1.6-8.6); Neutrophils % (auto) 58.3 % (37.0-80.0); Nucleated Red Blood Cells % 0.1 %; Red Blood Cells 3.71 10^6/uL (4.0-5.20); Red Cell Distribution Width 13.2 % (11.8-14.3); White Blood Cell 6.5 10^3/uL (4.4-10.8)
[2022-06-17 06:37] LABS: Potassium 4.1 mmol/L (3.5-5.1)
[2022-06-17 06:39] LABS: BUN/Creatinine Ratio 22.7
[2022-06-17] MEDS ORDERED: BUPIVACAINE 0.5% P/F INJ 10 ML VIAL ONE (07:02)
[2022-06-17] MEDS ORDERED: FAMOTIDINE (10MG/ML) 2ML VL IV ONE (07:03)
[2022-06-17] MEDS ORDERED: MIDAZOLAM HCL 2MG/2ML 2ml VIAL (1mg/ml) ONE (07:04)
[2022-06-17] MEDS ORDERED: fentaNYL CITRATE 100 MCG/2 ML VL ONE (07:04)
[2022-06-17] MEDS ORDERED: MORPHINE SULF PF 5 MG/10 ML VIAL ONE (07:04)
[2022-06-17] MEDS ORDERED: ePHEDrine SULFATE 50 MG/ML AMP ONE (07:05)
[2022-06-17] MEDS ORDERED: ONDANSETRON HCL 4 MG/2 ML VIAL ONE (07:05)
[2022-06-17] MEDS ORDERED: PROPOFOL 10 MG/ML 20 ML IV ONE ×2 (07:05→08:23)
[2022-06-17] MEDS ORDERED: GLYCOPYRROLATE 0.2 MG/ML 1ML VIAL ONE (07:05)
[2022-06-17] MEDS ORDERED: PHENYLEPHRINE HCL 10 MG/ML VL ONE (07:05)
[2022-06-17] MEDS ORDERED: KETOROLAC TROMETH 30 MG/ML 1ML VIAL ONE ×2 (07:05→07:57)
[2022-06-17] MEDS ORDERED: KETAMINE HCL 10 ML ONE (07:11)
[2022-06-17] MEDS ORDERED: GENTAMICIN SULF 80 MG/2 ML VIAL ONE (07:36)
[2022-06-17] MEDS ORDERED: VANCOMYCIN HCL 1000 MG VL ONE ×3 (07:39→08:15)
[2022-06-17] MEDS ORDERED: TRANEXAMIC ACID 20 ML ONE (07:41)
[2022-06-17] MEDS ORDERED: BUPIVACAINE 0.25% INJ 50ML VIAL ONE (07:57)
[2022-06-17] MEDS ORDERED: NALOXONE HCL 0.4 MG/ML VIAL IV PRN (09:30)
[2022-06-17] MEDS ORDERED: DexAMETHasone SOD PHOS 10MG/1ML VIAL INJ IV PRN (09:30)
[2022-06-17] MEDS ORDERED: ONDANSETRON HCL 4 MG/2 ML VIAL IV PRN (09:30)
[2022-06-17] MEDS ORDERED: KETOROLAC TROMETH 30 MG/ML 1ML VIAL IV PRN (09:30)
[2022-06-17] MEDS ORDERED: FAMOTIDINE (10MG/ML) 2ML VL IV PRN (09:30)
[2022-06-17] MEDS ORDERED: diphenhdrAMINE HCL 50 MG/1 ML VL IV PRN (09:30)
[2022-06-17] MEDS: cefTRIAXone 1GM/50ML D5W 50 ML IV SCH (13:20)
[2022-06-17] MEDS: TRIAMTERENE/HCTZ 37.5/25 MG CAP/TAB PO SCH (13:21)
[2022-06-17] MEDS: NAPROXEN 500 MG TAB PO SCH ×2 (13:22→22:04)
[2022-06-17] MEDS: PANTOPRAZOLE 40 MG TAB PO SCH (13:22)
[2022-06-17] MEDS: LOSARTAN POTASSIUM 50 MG TAB PO SCH (13:23)
[2022-06-17] MEDS: ONDANSETRON HCL 4 MG/2 ML VIAL IV PRN (14:02)
[2022-06-17] MEDS: cloNIDine HCL 0.1 MG TAB PO PRN (22:05)
[2022-06-18] VITALS (12 sets, daily range): BP systolic 97–158; BP diastolic 48–79
[2022-06-18 06:24] LABS: BUN/Creatinine Ratio 17.2; Calcium 10.1 mg/dL (8.5-10.1); Potassium 4.4 mmol/L (3.5-5.1)
[2022-06-18 06:35] LABS: Basophils # (auto) 0.1 10 ^3/uL (0-0.2); Eosinophils # (auto) 0.2 10 ^3/uL (0-0.8); Eosinophils % (auto) 3.1 % (0.0-7.0); Hematocrit 30.7 % (36.0-46.0); Hemoglobin 10.6 g/dL (12.2-16.2); Lymphocytes # (auto) 1.3 10 ^3/uL (0.4-5.4); Mean Corpuscular Hgb Conc. 34.5 g/dL (32.0-36.0); Monocytes # (auto) 0.7 10 ^3/uL (0-1.3); Monocytes % (auto) 12.7 % (0.0-12.0); Neutrophils # (auto) 3.5 10 ^3/uL (1.6-8.6); Neutrophils % (auto) 60.2 % (37.0-80.0); Red Blood Cells 3.41 10^6/uL (4.0-5.20); Red Cell Distribution Width 12.9 % (11.8-14.3); White Blood Cell 5.9 10^3/uL (4.4-10.8)
[2022-06-18] MEDS: HYDROcodone-ACET 5/325MG TAB PO PRN ×3 (08:33→21:28)
[2022-06-18] MEDS ORDERED: VANCOMYCIN 1GM/250ML 250 ML IV ONE (09:03)
[2022-06-18] MEDS: TRIAMTERENE/HCTZ 37.5/25 MG CAP/TAB PO SCH (09:11)
[2022-06-18] MEDS: PANTOPRAZOLE 40 MG TAB PO SCH (09:12)
[2022-06-18] MEDS: LOSARTAN POTASSIUM 50 MG TAB PO SCH ×2 (09:12→21:20)
[2022-06-18] MEDS: NAPROXEN 500 MG TAB PO SCH ×2 (09:14→21:19)
[2022-06-18] MEDS: cefTRIAXone 1GM/50ML D5W 50 ML IV SCH (09:31)
[2022-06-18] MEDS: KETOROLAC TROMETH 30 MG/ML 1ML VIAL IV PRN (11:27)
[2022-06-18] MEDS: MORPHINE SULFATE INJ 2 MG/ml SYRG IV PRN (13:07)
[2022-06-18] MEDS: ceFAZolin 1GM/50ML 50 ML IV SCH ×2 (14:00→21:20)
[2022-06-18] MEDS: cloNIDine HCL 0.1 MG TAB PO SCH (17:18)
[2022-06-19 05:00] VITALS: BP 151/68
[2022-06-19 05:18] LABS: Basophils # (auto) 0.1 10 ^3/uL (0-0.2); Eosinophils # (auto) 0.4 10 ^3/uL (0-0.8); Eosinophils % (auto) 5.6 % (0.0-7.0); Hematocrit 31.7 % (36.0-46.0); Lymphocytes # (auto) 1.8 10 ^3/uL (0.4-5.4); Lymphocytes % (auto) 25.2 % (10.0-50.0); Mean Corpuscular Hemoglobin 30.9 pg (28.0-32.0); Mean Corpuscular Hgb Conc. 34.8 g/dL (32.0-36.0); Mean Corpuscular Volume 88.7 fL (80.0-100.0); Monocytes # (auto) 0.8 10 ^3/uL (0-1.3); Monocytes % (auto) 11.8 % (0.0-12.0); Neutrophils # (auto) 3.9 10 ^3/uL (1.6-8.6); Neutrophils % (auto) 56.4 % (37.0-80.0); Nucleated Red Blood Cells % 0.1 %; Red Blood Cells 3.57 10^6/uL (4.0-5.20); Red Cell Distribution Width 12.7 % (11.8-14.3)
[2022-06-19 05:31] LABS: BUN/Creatinine Ratio 17.6; Calcium 10.7 mg/dL (8.5-10.1); Potassium 4.1 mmol/L (3.5-5.1)
[2022-06-19] MEDS: ceFAZolin 1GM/50ML 50 ML IV SCH ×3 (05:32→22:05)
[2022-06-19] MEDS: KETOROLAC TROMETH 30 MG/ML 1ML VIAL IV PRN ×2 (05:36→17:13)
[2022-06-19 08:30] VITALS: BP 152/68
[2022-06-19 09:07] LABS: INR 0.97 (0.9-1.15)
[2022-06-19] MEDS: TRIAMTERENE/HCTZ 37.5/25 MG CAP/TAB PO SCH (10:27)
[2022-06-19] MEDS: LOSARTAN POTASSIUM 50 MG TAB PO SCH ×2 (10:28→22:05)
[2022-06-19] MEDS: NAPROXEN 500 MG TAB PO SCH ×2 (10:28→22:04)
[2022-06-19] MEDS: PANTOPRAZOLE 40 MG TAB PO SCH (10:28)
[2022-06-19] MEDS: HYDROcodone-ACET 5/325MG TAB PO PRN ×3 (10:29→22:03)
[2022-06-19 12:55] VITALS: BP 148/81
[2022-06-19 16:53] VITALS: BP 148/81
[2022-06-19] MEDS: cloNIDine HCL 0.1 MG TAB PO SCH (17:05)
[2022-06-19 22:00] VITALS: BP 118/49
[2022-06-19] MEDS: SODIUM CHLOR 0.9% PF (SALINE LOCK) 10ML VIAL/SYR IV SCH (22:05)
[2022-06-20 05:00] VITALS: BP 163/83
[2022-06-20] MEDS: ceFAZolin 1GM/50ML 50 ML IV SCH ×3 (06:23→22:00)
[2022-06-20] MEDS: KETOROLAC TROMETH 30 MG/ML 1ML VIAL IV PRN ×3 (06:24→18:56)
[2022-06-20] MEDS: hydrALAZINE HCL 20 MG/ML VL IV PRN (07:06)
[2022-06-20 07:25] LABS: Basophils # (auto) 0.1 10 ^3/uL (0-0.2); Basophils % (auto) 1.2 % (0.0-2.0); Eosinophils # (auto) 0.5 10 ^3/uL (0-0.8); Hematocrit 33.3 % (36.0-46.0); Hemoglobin 11.8 g/dL (12.2-16.2); Lymphocytes # (auto) 1.4 10 ^3/uL (0.4-5.4); Mean Corpuscular Hemoglobin 31.2 pg (28.0-32.0); Mean Corpuscular Hgb Conc. 35.5 g/dL (32.0-36.0); Mean Corpuscular Volume 88.1 fL (80.0-100.0); Monocytes # (auto) 0.6 10 ^3/uL (0-1.3); Monocytes % (auto) 8.3 % (0.0-12.0); Neutrophils % (auto) 65.5 % (37.0-80.0); Red Blood Cells 3.78 10^6/uL (4.0-5.20); Red Cell Distribution Width 12.6 % (11.8-14.3); White Blood Cell 7.6 10^3/uL (4.4-10.8)
[2022-06-20 07:44] LABS: BUN/Creatinine Ratio 18.1; Calcium 11.5 mg/dL (8.5-10.1); Potassium 4.1 mmol/L (3.5-5.1)
[2022-06-20 09:00] VITALS: BP 169/82
[2022-06-20] MEDS: TRIAMTERENE/HCTZ 37.5/25 MG CAP/TAB PO SCH (09:38)
[2022-06-20] MEDS: LOSARTAN POTASSIUM 50 MG TAB PO SCH ×2 (09:39→18:56)
[2022-06-20] MEDS: NAPROXEN 500 MG TAB PO SCH ×2 (09:39→20:48)
[2022-06-20] MEDS: HYDROcodone-ACET 5/325MG TAB PO PRN ×2 (09:40→18:56)
[2022-06-20] MEDS: PANTOPRAZOLE 40 MG TAB PO SCH (09:41)
[2022-06-20] MEDS: SODIUM CHLOR 0.9% PF (SALINE LOCK) 10ML VIAL/SYR IV SCH ×2 (10:00→22:00)
[2022-06-20] MEDS: METOPROLOL TARTRATE 25 MG TAB PO SCH ×2 (12:01→20:49)
[2022-06-20 12:30] VITALS: BP 176/92
[2022-06-20] MEDS ORDERED: PANT40T PO (14:45)
[2022-06-20] MEDS ORDERED: MET25T PO (14:45)
[2022-06-20] MEDS ORDERED: LOSA-69 PO (14:45)
[2022-06-20] MEDS ORDERED: NAP500T PO (14:45)
[2022-06-20] MEDS ORDERED: RIFA300C3 PO (14:48)
[2022-06-20 17:00] VITALS: BP 160/74
[2022-06-20] MEDS: cloNIDine HCL 0.1 MG TAB PO SCH (18:57)
[2022-06-20 22:00] VITALS: BP 169/79
[2022-06-21 05:00] VITALS: BP 142/70
[2022-06-21] MEDS: ceFAZolin 1GM/50ML 50 ML IV SCH ×3 (06:11→22:05)
[2022-06-21 06:21] VITALS: BP 142/70
[2022-06-21 08:00] VITALS: BP 148/77
[2022-06-21] MEDS: NAPROXEN 500 MG TAB PO SCH ×2 (10:19→22:06)
[2022-06-21] MEDS: PANTOPRAZOLE 40 MG TAB PO SCH (10:20)
[2022-06-21] MEDS: SODIUM CHLOR 0.9% PF (SALINE LOCK) 10ML VIAL/SYR IV SCH ×2 (10:20→22:05)
[2022-06-21] MEDS: LOSARTAN POTASSIUM 50 MG TAB PO SCH ×2 (10:20→22:06)
[2022-06-21] MEDS: METOPROLOL TARTRATE 25 MG TAB PO SCH ×2 (10:20→22:06)
[2022-06-21] MEDS: TRIAMTERENE/HCTZ 37.5/25 MG CAP/TAB PO SCH (11:51)
[2022-06-21] MEDS: MICAFUNGIN SODIUM 100 MG in SODIUM CHL 0.9% 100 ML IV SCH (11:52)
[2022-06-21 12:00] VITALS: BP 118/73
[2022-06-21] MEDS: KETOROLAC TROMETH 30 MG/ML 1ML VIAL IV PRN (15:50)
[2022-06-21 16:00] VITALS: BP 162/74
[2022-06-21] MEDS: cloNIDine HCL 0.1 MG TAB PO SCH (18:26)
[2022-06-21 22:00] VITALS: BP 134/66
[2022-06-21] MEDS: HYDROcodone-ACET 5/325MG TAB PO PRN (22:07)
[2022-06-22 05:00] VITALS: BP 166/88
[2022-06-22] MEDS: HYDROcodone-ACET 5/325MG TAB PO PRN (05:02)
[2022-06-22] MEDS: KETOROLAC TROMETH 30 MG/ML 1ML VIAL IV PRN (05:02)
[2022-06-22] MEDS: hydrALAZINE HCL 20 MG/ML VL IV PRN (05:07)
[2022-06-22] MEDS: ceFAZolin 1GM/50ML 50 ML IV SCH ×2 (06:04→12:43)
[2022-06-22] MEDS: cloNIDine HCL 0.1 MG TAB PO PRN (06:16)
[2022-06-22 09:00] VITALS: BP 143/76
[2022-06-22] MEDS: TRIAMTERENE/HCTZ 37.5/25 MG CAP/TAB PO SCH (10:36)
[2022-06-22] MEDS: NAPROXEN 500 MG TAB PO SCH (10:37)
[2022-06-22] MEDS: PANTOPRAZOLE 40 MG TAB PO SCH (10:38)
[2022-06-22] MEDS: METOPROLOL TARTRATE 25 MG TAB PO SCH (10:38)
[2022-06-22] MEDS: LOSARTAN POTASSIUM 50 MG TAB PO SCH (10:38)
[2022-06-22] MEDS: SODIUM CHLOR 0.9% PF (SALINE LOCK) 10ML VIAL/SYR IV SCH (10:39)
[2022-06-22] MEDS: MICAFUNGIN SODIUM 100 MG in SODIUM CHL 0.9% 100 ML IV SCH (10:39)
[2022-06-22 12:33] VITALS: BP 149/66
== END 2022-06-22 14:00 | disposition home or self-care (01) | DRG 486 ==
LOC: ER 10:01 → EEVIPCON 10:01 → OVERFLOW 12:51 → CENTRAL 13:36 → TELE-CENTR 06-17 22:14 → CENTRAL 06-19 00:55
PROVIDERS: ADMIT Hospitalist; ATTEND Internal Medicine
PROC: 0SPC09Z Removal of Liner from Right Knee Joint, Open Approach (ICD-10-PCS; principal; 2022-06-17 07:27)
PROC: 0SUV09Z Supplement Right Knee Joint, Tibial Surface with Liner, Open Approach (ICD-10-PCS; 2022-06-17 07:27)
PROC: B54MZZA Ultrasonography of Right Upper Extremity Veins, Guidance (ICD-10-PCS; 2022-06-19)
PROC: 05HY33Z Insertion of Infusion Device into Upper Vein, Percutaneous Approach (ICD-10-PCS; 2022-06-19)
DX: T84.53XA Infection and inflammatory reaction due to internal right knee prosthesis, initial encounter (principal); N39.0 Urinary tract infection, site not specified; I10 Essential (primary) hypertension; I25.10 Atherosclerotic heart disease of native coronary artery without angina pectoris; Z20.822 Contact with and (suspected) exposure to COVID-19; Y83.1 Surgical operation with implant of artificial internal device as the cause of abnormal reaction of the patient, or of later complication, without mention of misadventure at the time of the procedure; Z90.710 Acquired absence of both cervix and uterus; Z88.0 Allergy status to penicillin; Z79.899 Other long term (current) drug therapy
CPT/HCPCS: 36415; 36569; 71045; 73560; 73700; 73721; 76000; 80048; 80053; 80202; 81001; 83605; 84550; 85025; 85610; 85652; 85730; 86141; 86850; 86900; 86901; 87040; 87077; 87186; 87205; 87426; 93005; 93971; 97110; 97116; 97163; 97530; G0378; J0690; J0696; J1885; J2001; J2248; J2250; J2405; J2704; J3490

== ENCOUNTER → 2022-09-01 | Outpatient (CLI) | payer BC, MEDICARE ==
[~2022-09-01] MED LIST changes: -LACTCAP35 OR; +LOSA-69 PO; +MET25T PO; +NAP500T PO; +PANT40T PO; +RIFA300C3 PO; -TRIATAB3 OR; -TURMPOW XX
[2022-09-01 12:24] LABS: Basophils # (auto) 0.1 10 ^3/uL (0-0.2); Eosinophils # (auto) 0.2 10 ^3/uL (0-0.8); Eosinophils % (auto) 2.2 % (0.0-7.0); Hematocrit 41.3 % (36.0-46.0); Lymphocytes # (auto) 1.5 10 ^3/uL (0.4-5.4); Lymphocytes % (auto) 21.1 % (10.0-50.0); Mean Corpuscular Hemoglobin 30.3 pg (28.0-32.0); Mean Corpuscular Hgb Conc. 33.9 g/dL (32.0-36.0); Mean Corpuscular Volume 89.6 fL (80.0-100.0); Monocytes # (auto) 0.6 10 ^3/uL (0-1.3); Monocytes % (auto) 8.3 % (0.0-12.0); Neutrophils # (auto) 4.9 10 ^3/uL (1.6-8.6); Neutrophils % (auto) 67.4 % (37.0-80.0); Nucleated Red Blood Cells % 0.5 %; Red Blood Cells 4.61 10^6/uL (4.0-5.20); Red Cell Distribution Width 14.3 % (11.8-14.3); White Blood Cell 7.3 10^3/uL (4.4-10.8)
[2022-09-01 12:58] LABS: Calcium 10.1 mg/dL (8.5-10.1); Potassium 4.3 mmol/L (3.5-5.1)
[2022-09-01 13:00] LABS: BUN/Creatinine Ratio 23.8 (10.0-20.0); CRP High Sensitivity 0.5 mg/dL (< 0.3)
== END | disposition home or self-care (01) ==
LOC: LAB 11:31
PROVIDERS: ATTEND Orthopaedic Surgery Adult Reconstructive Orthopaedic Surgery
DX: T84.53XA Infection and inflammatory reaction due to internal right knee prosthesis, initial encounter (principal)
CPT/HCPCS: 36415; 80048; 85025; 85652; 86141